=== PATIENT | male | born 1980 | race Caucasian/White ===

== ENCOUNTER 2022-09-25 14:36 | Emergency (ER) | payer OTHER ==
[~2022-09-25] VITALS: Ht 180.3 cm; Wt 80.3 kg
[~2022-09-25 14:36] MED LIST: KETO10TA2 PO
== END 2022-09-25 18:08 | disposition home or self-care (01) ==
LOC: ER 14:36
DX: M54.2 Cervicalgia (principal); Z91.013 Allergy to seafood; M62.838 Other muscle spasm